=== PATIENT | female | born 1980 | race Caucasian/White ===

== ENCOUNTER 2021-06-02 22:41 | Emergency (ER) | payer OTHER ==
[2021-06-02 23:42] LABS: BASOPHILS # (AUTO) 0.1 10^3/uL (0.0-0.1); BASOPHILS % (AUTO) 0.7 %; EOSINOPHILS # (AUTO) 0.2 10^3/uL (0.0-0.7); EOSINOPHILS % (AUTO) 3.1 %; HGB - HEMOGLOBIN 16.9 g/dL (12.0-16.0); LYMPHOCYTES # (AUTO) 1.9 10^3/uL (1.5-3.5); LYMPHOCYTES % (AUTO) 26.1 %; MEAN CORPUSCULAR HEMOGLOBIN 30.5 pg (27.0-31.0); MEAN CORPUSCULAR HGB CONC 34.5 g/dL (32.0-36.0); MEAN CORPUSCULAR VOLUME 88.4 fL (81.0-99.0); MEAN PLATELET VOLUME 10.1 fL (7.9-10.8); MONOCYTES # (AUTO) 0.4 10^3/uL (0.0-1.0); MONOCYTES % (AUTO) 5.6 %; NEUTROPHILS # (AUTO) 4.7 10^3/uL (1.5-6.6); NEUTROPHILS % (AUTO) 64.4 %; PLT - PLATELET COUNT 222 10^3/uL (130-450); RED BLOOD COUNT 5.54 10^6/uL (4.20-5.40); RED CELL DISTRIBUTION WIDTH 11.8 % (12.0-15.0); WHITE BLOOD COUNT 7.4 x10^3/uL (4.8-10.8)
[2021-06-02] MEDS: cloNIDine 0.1 MG TABLET PO STA (23:45)
[2021-06-02 23:55] LABS: ALBUMIN 4.5 g/dL (3.2-5.5); ALBUMIN/GLOBULIN RATIO 1.6 (1.0-2.2); BILIRUBIN,TOTAL 0.3 mg/dL (0.2-1.0); CALCIUM 8.8 mg/dL (8.5-10.3); CREATININE 0.7 mg/dL (0.4-1.0); POTASSIUM 3.1 mmol/L (3.5-5.0); TOTAL PROTEIN 7.4 g/dL (6.7-8.2)
[2021-06-03] MEDS: cloNIDine 0.1 MG TABLET PO STA (00:08)
[2021-06-03 00:13] VITALS: BP 175/108
[2021-06-03] MEDS ORDERED: POTASSIUM CHLORIDE 20 MEQ TABLET PO STA (00:57)
--- NOTE | 2021-06-03 01:20 | ED Physician Documentation ---
History of Present Illness - Stated complaint Stated Complaint: HI BP - Chief complaint Chief Complaint: General - Additonal information Additional information: Patient is a 41-year-old female with a recent diagnosis of hypertension And just started on amlodipine yesterday presenting for evaluation of uncontrolled blood pressures.Patient had an appointment with her primary care doctor yesterday and was noted to have elevated blood pressure readings With elevated systolic and diastolic readings. Patient was started on Norvasc. She took her first dose tonight at 5 PM. She has been monitoring her blood pressure today and it is remained elevated. While discussing this with other friends and family members they expressed concern about her elevated blood pressure and patient started also to feel worried.She says at times she is felt pressure in her eyes but otherwise currently denies a headache, chest pain, difficulty breathing, focal weakness. Review of Systems Constitutional: denies: Fever Eyes: denies: Loss of vision, Decreased vision Nose: denies: Congestion Cardiac: denies: Chest pain / pressure, Palpitations Respiratory: denies: Dyspnea, Cough GI: denies: Abdominal Pain, Nausea, Vomiting : denies: Dysuria Skin: denies: Rash Musculoskeletal: denies: Back pain Neurologic: denies: Headache PD PAST MEDICAL HISTORY - Past Medical History Past Medical History: Yes Cardiovascular: Hypertension Respiratory: None Neuro: None Endocrine/Autoimmune: None GI: None CLAIM APPROVER: None : None HEENT: None Psych: None Musculoskeletal: None Derm: None - Past Surgical History Past Surgical History: No - Present Medications Home Medications: Ambulatory Orders Medication Instructions Recorded Confirmed amLODIPine [Norvasc] 2.5 mg pe PO DAILY 06/02/21 06/02/21 - Allergies Allergies/Adverse Reactions: Allergies Allergy/AdvReac Type Severity Reaction Status Date / Time No Known Drug Allergies Allergy Verified 06/02/21 22:52 - Social History Does the pt smoke?: Yes Smoking Status: Current every day smoker Does the pt drink ETOH?: Yes Does the pt have substance abuse?: No - Immunizations Immunizations are current?: Yes - POLST Patient has POLST: No PD ED PE NORMAL - General General: Alert and oriented X 3, No acute distress, Well developed/nourished - HEENT HEENT: Atraumatic, PERRL, EOMI, Moist mucous membranes, Pharynx benign - Neck Neck: Supple, no meningeal sign - Cardiac Cardiac: RRR, No murmur, Strong equal pulses - Respiratory Respiratory: No respiratory distress, Clear bilaterally - Abdomen Abdomen: Normal bowel sounds, Soft, Non tender, Non distended - Back Back: No CVA TTP - Derm Derm: Warm and dry - Extremities Extremities: No deformity, No edema - Neuro Neuro: Alert and oriented X 3, No motor deficit, Normal speech - Psych Psych: Normal mood, Normal affect Results - Vitals Vitals: Vital Signs - 24 hr 06/02/21 06/02/21 06/02/21 22:45 22:58 23:20 Temperature 35.8 C L 36.4 C L Heart Rate 112 H 52 L 109 H Respiratory 16 16 16 Rate Blood Pressure 216/129 H 113/69 O2 Saturation 97 96 96 06/02/21 06/03/21 06/03/21 23:22 00:05 00:28 Temperature Heart Rate 102 H 75 101 H Respiratory 16 16 16 Rate Blood Pressure 209/126 H 175/108 H O2 Saturation 97 96 98 Oxygen O2 Source Room air - EKG (time done) 2328 Rate: Rate (enter#) (89) Rhythm: NSR Ischemia: ST depression (V5, V6) - Labs Labs: Laboratory Tests 06/02/21 06/02/21 06/02/21 23:32 23:32 23:32 WBC 7.4 RBC 5.54 H Hgb 16.9 H Hct 49.0 H MCV 88.4 MCH 30.5 MCHC 34.5 RDW 11.8 L Plt Count 222 MPV 10.1 Neut # (Auto) 4.7 Lymph # (Auto) 1.9 [place] # (Auto) 0.4 Eos # (Auto) 0.2 Baso # (Auto) 0.1 Absolute Nucleated RBC 0.00 Nucleated RBC % 0.0 Sodium 145 Potassium 3.1 L Chloride 107 Carbon Dioxide 24 Anion Gap 14.0 H BUN 15 Creatinine 0.7 Estimated GFR (MDRD) 91 Glucose 108 H Calcium 8.8 Total Bilirubin 0.3 AST 29 ALT 43 Alkaline Phosphatase 44 Troponin I High Sens 23.4 H* Total Protein 7.4 Albumin 4.5 Globulin 2.9 Albumin/Globulin Ratio 1.6 06/03/21 00:43 WBC RBC Hgb Hct MCV MCH MCHC RDW Plt Count MPV Neut # (Auto) Lymph # (Auto) [place] # (Auto) Eos # (Auto) Baso # (Auto) Absolute Nucleated RBC Nucleated RBC % Sodium Potassium Chloride Carbon Dioxide Anion Gap BUN Creatinine Estimated GFR (MDRD) Glucose Calcium Total Bilirubin AST ALT Alkaline Phosphatase Troponin I High Sens 26.4 H* Total Protein Albumin Globulin Albumin/Globulin Ratio PD MEDICAL DECISION MAKING - ED course Complexity details: reviewed results, d/w patient, d/w family ED course: Patient is a 41-year-old female with a history of hypertension and just started on medication presenting for evaluation of elevated blood pressure readings. Patient is essentially asymptomatic here but has significantly elevated blood pr essure readings during initial exam. Therefore I did obtain an EKG and lab work to evaluate for signs of endorgan damage.Initial high-sensitivity troponin was in the indeterminate range but on repeat did not change. Patient denies any current symptoms throughout her stay and her blood pressure did improve to 178/101. Without any intervention. I encourage patient to be compliant with her new medication and to keep a log of her blood pressure readings. She does not have signs of hypertensive emergency or urgency at this time. Patient is to follow-up with her primary care doctor. She is aware of strict return precautions for any new or worsening symptoms. Departure - Departure Disposition: 01 Home, Self Care Clinical Impression: Uncontrolled hypertension, Hypokalemia Instructions: ED Hypertension Conf Out Of Control Comments: Seen in the emergency department for high blood pressure. Your blood pressure has improved while in the emergency department without needing additional medications. Your labs were also checked and your potassium was slightly low but you were given a potassium pill to help with this. Please continue taking your blood pressure medication as prescribed and keep a log of your blood pressure readings at home. If it anytime you start having symptoms such as a headache, changes to your vision, chest pain, difficulty breathing, weakness please return to the emergency department. Otherwise you should follow-up with your primary care doctor in the next 1 to 2 weeks regarding another blood pressure check. Discharge Date/Time: 06/03/21 01:35
== END 2021-06-03 01:35 | disposition home or self-care (01) ==
LOC: ED 22:41
DX: I10 Essential (primary) hypertension (principal); E87.6 Hypokalemia; F17.200 Nicotine dependence, unspecified, uncomplicated
CPT/HCPCS: 36415; 80053; 84484; 85025; 93005; 99284; A9270

== ENCOUNTER 2022-01-01 15:41 | Emergency (ER) | payer OTHER ==
[2022-01-01 20:54] LABS: BASOPHILS % (AUTO) 0.5 %; EOSINOPHILS # (AUTO) 0.1 10^3/uL (0.0-0.7); EOSINOPHILS % (AUTO) 1.4 %; HCT - HEMATOCRIT 41.4 % (37.0-47.0); HGB - HEMOGLOBIN 14.4 g/dL (12.0-16.0); LYMPHOCYTES # (AUTO) 1.4 10^3/uL (1.5-3.5); LYMPHOCYTES % (AUTO) 16.6 %; MEAN CORPUSCULAR HEMOGLOBIN 31.1 pg (27.0-31.0); MEAN CORPUSCULAR HGB CONC 34.8 g/dL (32.0-36.0); MEAN CORPUSCULAR VOLUME 89.4 fL (81.0-99.0); MEAN PLATELET VOLUME 9.6 fL (7.9-10.8); MONOCYTES # (AUTO) 0.9 10^3/uL (0.0-1.0); MONOCYTES % (AUTO) 11.1 %; PLT - PLATELET COUNT 232 10^3/uL (130-450); RED BLOOD COUNT 4.63 10^6/uL (4.20-5.40); RED CELL DISTRIBUTION WIDTH 12.5 % (12.0-15.0); WHITE BLOOD COUNT 8.5 x10^3/uL (4.8-10.8)
[2022-01-01 20:59] LABS: INR 1.1 (0.8-1.2)
[2022-01-01 21:09] LABS: ALBUMIN 4.2 g/dL (3.2-5.5); ALBUMIN/GLOBULIN RATIO 1.7 (1.0-2.2); BILIRUBIN,TOTAL 1.2 mg/dL (0.2-1.0); CALCIUM 8.8 mg/dL (8.5-10.3); CREATININE 0.6 mg/dL (0.4-1.0); POTASSIUM 2.7 mmol/L (3.5-5.0); TOTAL PROTEIN 6.7 g/dL (6.7-8.2)
--- NOTE | 2022-01-01 21:09 | Ultrasound Report ---
PROCEDURE: Duplex Ext Veins Left INDICATIONS: LLE edema TECHNIQUE: Real-time imaging, as well as color and pulse Doppler interrogation, were performed of the lower extr emity deep veins from the inguinal ligament to the popliteal fossa. COMPARISON: None. FINDINGS: There are extensive filling defects throughout the left lower extremity extending from the proximal t o pressure femoral vein to the distal calf consistent with occlusive deep venous thrombosis. IMPRESSION: 1. Extensive deep venous thrombosis throughout the left lower extremity. Findings reported Dr. Mckeon at the conclusion of the study by the medical technologist prn. Reviewed by: Jerad Sol MD on 01/01/2022 9:07 PM [facility] Approved by: Jerad Sol MD on 01/01/2022 9:07 PM PST Station ID: [id number]
--- NOTE | 2022-01-01 21:41 | ED Physician Documentation ---
History of Present Illness - Stated complaint Stated Complaint: EDEMA - Chief complaint Chief Complaint: Ext Problem - Additonal information Additional information: 41-year-old female presents to the emergency department for evaluation of 1 week left lower extremity leg pain and swelling. She reports that about 1 week ago she woke up and thought she had pulled a muscle in her leg but over time the pain is progressed up to her medial thigh. She typically wakes up with swelling in the leg though with elevation it does improve. She is denying chest pain or shortness of air. She takes a Depo shot every 3 months for control. Occ asionally smokes. No history of recent surgery, travel or immobilization. No personal history of DVT or cancer. No family history of factor V Leyden 5 or deep vein thrombosis that she is aware of. Review of Systems Constitutional: reports: Reviewed and negative Throat: reports: Reviewed and negative Cardiac: reports: Reviewed and negative Respiratory: reports: Reviewed and negative GI: reports: Reviewed and negative : reports: Reviewed and negative Musculoskeletal: reports: Extremity pain, Extremity swelling PD PAST MEDICAL HISTORY - Past Medical History Past Medical History: Yes Cardiovascular: Hypertension Respiratory: None Neuro: None Endocrine/Autoimmune: None GI: None SURFACING TECHNICIAN: None : None HEENT: None Psych: None Musculoskeletal: None Derm: None - Past Surgical History Past Surgical History: No - Present Medications Home Medications: Ambulatory Orders Medication Instructions Recorded Confirmed amLODIPine [Norvasc] 2.5 mg pe PO DAILY 06/02/21 06/02/21 Apixaban [Eliquis] 5 mg PO BID #30 tablet 01/01/22 - Allergies Allergies/Adverse Reactions: Allergies Allergy/AdvReac Type Severity Reaction Status Date / Time No Known Drug Allergies Allergy Verified 06/02/21 22:52 - Social History Does the pt smoke?: Yes Smoking Status: Current every day smoker Does the pt drink ETOH?: Yes Does the pt have substance abuse?: No - Immunizations Immunizations are current?: Yes - POLST Patient has POLST: No PD ED PE NORMAL - General General: Alert and oriented X 3, No acute distress - HEENT HEENT: PERRL - Neck Neck: Supple, no meningeal sign, No adenopathy - Cardiac Cardiac: RRR, No murmur - Respiratory Respiratory: No respiratory distress - Abdomen Abdomen: Normal bowel sounds, Soft, Non tender - Derm Derm: Normal color, Warm and dry - Extremities Extremities: No deformity, Other (Tenderness with palpation of the left medial calf and medial thigh. Mild swelling but no erythema.) - Neuro Neuro: Alert and oriented X 3, international relations professor 2-12 intact Eye Opening: Spontaneous Motor: Obeys Commands Verbal: Oriented GCS Score: 15 Results - Vitals Vitals: Vital Signs - 24 hr 01/01/22 01/01/22 15:56 20:00 Temperature 36.9 C Heart Rate 95 88 Respiratory 16 16 Rate Blood Pressure 168/81 H 150/79 H O2 Saturation 97 98 Oxygen O2 Source Room air - Labs Labs: Laboratory Tests 01/01/22 01/01/22 01/01/22 20:30 20:30 20:30 WBC 8.5 RBC 4.63 Hgb 14.4 Hct 41.4 MCV 89.4 MCH 31.1 H MCHC 34.8 RDW 12.5 Plt Count 232 MPV 9.6 Neut # (Auto) 6.0 Lymph # (Auto) 1.4 L [place] # (Auto) 0.9 Eos # (Auto) 0.1 Baso # (Auto) 0.0 Absolute Nucleated RBC 0.00 Nucleated RBC % 0.0 PT 12.0 INR 1.1 Sodium 138 Potassium 2.7 L Chloride 99 L Carbon Dioxide 27 Anion Gap 12.0 BUN 10 Creatinine 0.6 Estimated GFR (MDRD) 109 Glucose 102 H Calcium 8.8 Total Bilirubin 1.2 H AST 30 ALT 31 Alkaline Phosphatase 50 Total Protein 6.7 Albumin 4.2 Globulin 2.5 Albumin/Globulin Ratio 1.7 Lipase 56 H SARS-CoV-2 (PCR) 01/01/22 21:45 WBC RBC Hgb Hct MCV MCH MCHC RDW Plt Count MPV Neut # (Auto) Lymph # (Auto) [place] # (Auto) Eos # (Auto) Baso # (Auto) Absolute Nucleated RBC Nucleated RBC % PT INR Sodium Potassium Chloride Carbon Dioxide Anion Gap BUN Creatinine Estimated GFR (MDRD) Glucose Calcium Total Bilirubin AST ALT Alkaline Phosphatase Total Protein Albumin Globulin Albumin/Globulin Ratio Lipase SARS-CoV-2 (PCR) NOT DETECTED - Rads (name of study) US DVT Radiology: Final report received (Extensive deep vein thrombosis extending from the proximal femoral vein to the distal calf.) PD MEDICAL DECISION MAKING - ED course Complexity details: reviewed results, re-evaluated patient, considered diffe rential, d/w patient ED course: 41-year-old female presents emergency department for about 1 week of left lower extremity swelling and pain. She initially thought she pulled a muscle but over the last week she has had pain that extends from her lower calf up to her medial thigh. Her CBC and electrolytes showed no acute worrisome findings. Unfortunately an ultrasound shows extensive deep vein thrombosis from the left medial femoral vein all the way down through the popliteal veins to the foot. There is some mild associated swelling as well as some moderate pain. Given how extensive this thrombus is I am electing to consult with vascular to determine if she should be seen for thrombectomy or be evaluated for thrombolysis. Admittedly this would be an unprovoked DVT and patient will require follow-up with hematology oncology as an outpatient for further evaluation of this thrombus and longer-term anticoagulation management if deemed stable for discharge home 2250: I have spoken with Dr. Prabhakar the vascular surgeon on-call at [facility]. She was able to review the ultrasound imaging orders she makes the recommendation for Eliquis. She does not feel that the patient would benefit from emergent transfer for thrombectomy or thrombolysis. Patient should continue to follow-up with her PCP as an outpatient and obtain referral to hematology oncology. These findings were discussed with the patient as well as emergent return precautions for concerns of chest pain and shortness of air/PE symptoms Departure - Departure Disposition: 01 Home, Self Care Clinical Impression: Deep vein thrombosis Qualifiers: DVT location: lower extremity Affected thrombotic vein of extremity: femoral Chronicity: acute Laterality: left Qualified Code(s): I82.412 - Acute embolism and thrombosis of left femoral vein Condition: Stable Record reviewed to determine appropriate education?: Yes Instructions: ED DVT, Apixaban oral tablets Follow-Up: Mikki Harrison MD [Primary Care Provider] - Prescriptions: Apixaban [Eliquis] 5 mg PO BID #30 tablet Comments: You are seen today in the emergency department for evaluation of left lower leg pain and swelling. Your labs did not show any worrisome findings. Unfortunately you do have a very large DVT that extends from your femoral vein all the way down to your popliteal vein. Your case was discussed with the vascular surgeon at and they do not feel that you would benefit from an emergent referral for a thrombectomy or thrombolysis. In order to manage the DVT we are starting you on Eliquis. This is a medication that prevents new clot from forming. The clot burden your leg will simply get absorbed over time. Fill the prescription for the Eliquis and begin taking 10 mg twice daily for 1 week. After that begin taking 5 mg twice daily. Your primary care doctor will need to make a referral for you to a landscaper helper and oncologist for longer-term evaluation of this DVT and to help determine why you have gotten such a large 1. At any point you develop sudden severe chest pain, have severe shortness of air or any fainting episodes you must return immediately to the ER for a second evaluation. Today point you have any falls or trauma, hit your head, have sudden severe headache or uncontrolled bleeding you then must also return immediately to the ER.
[2022-01-01] MEDS ORDERED: APIXABAN 5 MG TABLET PO STA (22:50)
[2022-01-01 22:53] VITALS: BP 158/94
== END 2022-01-01 23:07 | disposition home or self-care (01) ==
LOC: ED 15:41
DX: I82.412 Acute embolism and thrombosis of left femoral vein (principal); F17.200 Nicotine dependence, unspecified, uncomplicated
CPT/HCPCS: 36415; 80053; 83690; 85025; 85610; 87635; 93971; 99284; A9270

== ENCOUNTER 2022-03-29 11:31 | Outpatient (CLI) | payer OTHER ==
--- NOTE | 2022-03-29 12:42 | Ultrasound Report ---
PROCEDURE: Duplex Ext Veins Left INDICATIONS: EDEMA TECHNIQUE: Real-time imaging, as well as color and pulse Doppler interrogation, were performed of the lower extr emity deep veins from the inguinal ligament to the popliteal fossa. COMPARISON: Venous ultrasound 01/01/2022 FINDINGS: Nonocclusive thrombus within the right superficial femoral vein extending proximal to the p opliteal vein. Calf veins are not well seen. It is noted prior thrombus extended throughout the lower extremity into the calf veins. IMPRESSION: Persistent thrombus although improving compared to prior exam. Reviewed by: Анна Kingsley MD on 03/29/2022 12:40 PM PST Approved by: Анна Kingsley MD on 03/29/2022 12:40 PM PST Station ID: [id number]
== END 2022-03-29 11:32 | disposition home or self-care (01) ==
LOC: DI 11:31
PROVIDERS: ATTEND Internal Medicine
DX: R60.0 Localized edema (principal); I82.812 Embolism and thrombosis of superficial veins of left lower extremity

== ENCOUNTER 2022-05-04 08:28 | Outpatient (CLI) | payer OTHER ==
[2022-05-05 17:08] LABS: ANTI-DNA (DS) AB QN <1 IU/mL (0-9); CENTROMERE B ANTIBODIES <0.2 AI (0.0-0.9); CHROMATIN ANTIBODIES <0.2 AI (0.0-0.9); JO-1 AB <0.2 AI (0.0-0.9); RIBOSOMAL P ANTIBODIES <0.2 AI (0.0-0.9); RNP ANTIBODIES <0.2 AI (0.0-0.9); SCLERODERMA-70 ANTIBODIES <0.2 AI (0.0-0.9); SJOGREN'S ANTI-SS-A <0.2 AI (0.0-0.9); SJOGREN'S ANTI-SS-B <0.2 AI (0.0-0.9); SMITH ANTIBODIES <0.2 AI (0.0-0.9); SMITH/RNP ANTIBODIES <0.2 AI (0.0-0.9)
== END 2022-05-04 08:29 | disposition home or self-care (01) ==
LOC: LAB 08:28
PROVIDERS: ATTEND Internal Medicine
DX: I82.409 Acute embolism and thrombosis of unspecified deep veins of unspecified lower extremity (principal)
CPT/HCPCS: 36415; 81240; 81241; 81599; 82172; 83090; 83516; 85300; 85303; 85306; 85307; 85651; 86140; 86225; 86235

== ENCOUNTER 2022-07-30 07:00 | Outpatient (CLI) | payer OTHER ==
--- NOTE | 2022-07-30 18:55 | XRAY Report ---
PROCEDURE: Knee 4 View RT INDICATIONS: ACUTE RIGHT KNEE PAIN TECHNIQUE: 3 views of the right knee(s) were acquired. COMPARISON: None. FINDINGS: Bones: No fractures or dislocations. No suspicious bony lesions. Soft tissues: No knee joint effusion. No suspicious soft tissue calcifications or masses. IMPRESSION: No acute bony abnormality. Reviewed by: Chintan Miller MD on 07/30/2022 5:54 PM [facility] Approved by: Chintan Miller MD on 07/30/2022 5:54 PM [facility] Station ID: [id number]
== END 2022-07-30 23:59 | disposition home or self-care (01) ==
LOC: DI.S 07:00
PROVIDERS: ATTEND Physician Assistant
DX: M25.561 Pain in right knee (principal); M25.461 Effusion, right knee

== ENCOUNTER 2022-07-30 16:18 | Outpatient (CLI) | payer OTHER | END 2022-07-30 23:59 | disposition home or self-care (01) | LOC: DI.S 16:18 | PROVIDERS: ATTEND Physician Assistant | DX: Z53.9 Procedure and treatment not carried out, unspecified reason (principal) ==

== ENCOUNTER 2022-08-23 15:56 | Outpatient (CLI) | payer OTHER ==
--- NOTE | 2022-08-23 17:35 | Ultrasound Report ---
PROCEDURE: Duplex Ext Veins Right INDICATIONS: EDEMA TECHNIQUE: Real-time imaging, as well as color and pulse Doppler interrogation, were performed of the lower extr emity deep veins from the inguinal ligament to the popliteal fossa. COMPARISON: None. FINDINGS AND IMPRESSION: Positive study for DVT in the right leg. Essentially occlusive thrombus is seen involving the profund a vein, distal CFV, SFV, popliteal, and calf veins. Reviewed by: Raghavendra Cardoza MD on 08/23/2022 5:34 PM PDT Approved by: Raghavendra Cardoza MD on 08/23/2022 5:34 PM PDT Station ID: [id number]
== END 2022-08-23 15:57 | disposition home or self-care (01) ==
LOC: DI 15:56
PROVIDERS: ATTEND Internal Medicine
DX: I82.411 Acute embolism and thrombosis of right femoral vein (principal); I82.431 Acute embolism and thrombosis of right popliteal vein; I82.491 Acute embolism and thrombosis of other specified deep vein of right lower extremity

== ENCOUNTER 2023-03-06 08:00 | Outpatient (CLI) | payer OTHER | END 2023-03-06 23:59 | disposition home or self-care (01) | LOC: LAB.S 08:00 | PROVIDERS: ATTEND Internal Medicine | DX: R31.0 Gross hematuria (principal) | CPT/HCPCS: 87086 ==

== ENCOUNTER 2023-07-31 15:12 | Outpatient (CLI) | payer OTHER ==
--- NOTE | 2023-08-01 10:21 | Mammography Report ---
BILATERAL FIRST EVER DIGITAL SCREENING MAMMOGRAM 3D/2D: 07/31/2023 CLINICAL: Baseline exam. Routine screening. No prior exams were available for comparison. There are scattered areas of fibroglandular density in both breasts (category b / 25%-50% glandular t issue). There is a focal asymmetry in the right breast central to the nipple anterior depth. There is a focal asymmetry in the left breast at 2 o'clock middle depth. No other significant masses or calcifications are seen in either breast. IMPRESSION: INCOMPLETE: NEEDS ADDITIONAL IMAGING EVALUATION The focal asymmetry in the right breast central to the nipple anterior depth is indeterminate. Addit ional views with possible ultrasound are recommended. The focal asymmetry in the left breast at 2 o'clock middle depth is indeterminate. Additional views with possible ultrasound are recommended. Based on the Tyrer Cuzick model (a risk assessment model) the patient's lifetime risk is 7.1% and her 10 year risk is 1.3%. According to the ACR, ACS, and NCCN guidelines, an annual breast MRI exam ana maria g with mammogram is recommended if the patient's lifetime risk is 20% or greater. This exam was interpreted at Station ID: [id number]. NOTE: For mammograms, a report in lay terms will be sent to the patient. Approximately 15% of breast malignancies will not be visualized mammographically. In the management of a palpable breast mass, a negative mammogram must not discourage biopsy of a clinically suspicious lesion. Electronically Signed By: Raghavendra de paz/wilsonrad:08/01/2023 08:29:10 ACR BI-RADS Category 0: Incomplete 3340F PARENCHYMAL PATTERN: (A) - The breast(s) demonstrate(s) scattered fibroglandular densities. BI-RADS CATEGORY: (0) - 0 Mammo and [place] [id number] Immediate follow-up LATERALITY: (B)
== END 2023-07-31 15:13 | disposition home or self-care (01) ==
LOC: DI 15:12
PROVIDERS: ATTEND Internal Medicine
DX: Z12.31 Encounter for screening mammogram for malignant neoplasm of breast (principal); R92.8 Other abnormal and inconclusive findings on diagnostic imaging of breast; R92.323 Mammographic fibroglandular density, bilateral breasts

== ENCOUNTER 2023-09-21 08:00 | Outpatient (CLI) | payer OTHER | END 2023-09-21 23:58 | disposition home or self-care (01) | LOC: LAB 08:00 | PROVIDERS: ATTEND Physician Assistant | DX: N39.0 Urinary tract infection, site not specified (principal) | CPT/HCPCS: 87086 ==

== ENCOUNTER 2023-09-24 16:47 | Emergency (ER) | payer OTHER ==
[2023-09-24 17:14] VITALS: O2SAT 99
[2023-09-24 17:27] LABS: BILIRUBIN,URINE NEGATIVE (NEGATIVE); GLUCOSE, URINE (UA) NEGATIVE (NEGATIVE); KETONES,URINE (UA) 40 mg/dL (NEGATIVE); LEUKOCYTE ESTERASE, URINE TRACE (NEGATIVE); NITRITE,URINE POSITIVE (NEGATIVE); OCCULT BLOOD,URINE LARGE (NEGATIVE); PH,URINE 6.5 PH (5.0-7.5); PROTEIN,URINE 100 mg/dL (NEGATIVE); UROBILINOGEN,URINE 1 (NORMAL) E.U./dL (NORMAL)
[2023-09-24 17:30] LABS: CLARITY,URINE CLOUDY (CLEAR)
[2023-09-24 17:31] LABS: HCG UR QUAL NEGATIVE
[2023-09-24 17:36] LABS: RBC,URINE TNTC /HPF (0-5)
[2023-09-24 17:37] LABS: BACTERIA,URINE None Seen /HPF (None Seen); SQUAMOUS EPITHELIAL CELL,UR NONE SEEN (<= Few)
[2023-09-24 17:42] LABS: BASOPHILS % (AUTO) 0.5 %; EOSINOPHILS # (AUTO) 0.1 10^3/uL (0.0-0.7); EOSINOPHILS % (AUTO) 1.9 %; HCT - HEMATOCRIT 38.9 % (37.0-47.0); HGB - HEMOGLOBIN 13.5 g/dL (12.0-16.0); LYMPHOCYTES # (AUTO) 1.6 10^3/uL (1.5-3.5); LYMPHOCYTES % (AUTO) 21.8 %; MEAN CORPUSCULAR HEMOGLOBIN 31.4 pg (27.0-31.0); MEAN CORPUSCULAR HGB CONC 34.7 g/dL (32.0-36.0); MEAN CORPUSCULAR VOLUME 90.5 fL (81.0-99.0); MEAN PLATELET VOLUME 9.5 fL (7.9-10.8); MONOCYTES # (AUTO) 0.6 10^3/uL (0.0-1.0); MONOCYTES % (AUTO) 8.2 %; NEUTROPHILS # (AUTO) 4.9 10^3/uL (1.5-6.6); NEUTROPHILS % (AUTO) 67.5 %; PLT - PLATELET COUNT 257 10^3/uL (130-450); RED CELL DISTRIBUTION WIDTH 12.1 % (12.0-15.0); WHITE BLOOD COUNT 7.3 x10^3/uL (4.8-10.8)
[2023-09-24 17:52] LABS: ALBUMIN 4.4 g/dL (3.2-5.5); BILIRUBIN,TOTAL 0.6 mg/dL (0.2-1.0); CALCIUM 9.6 mg/dL (8.5-10.3); CREATININE 0.7 mg/dL (0.6-1.3); POTASSIUM 3.1 mmol/L (3.5-4.5); TOTAL PROTEIN 6.6 g/dL (6.4-8.9)
--- NOTE | 2023-09-24 18:04 | ED Physician Documentation ---
History of Present Illness - Stated complaint Stated Complaint: - Chief complaint Chief Complaint: Abd Pain - History obtained from History obtained from: Patient - History of Present Illness Pain level max: 0 Pain level now: 0 - Additonal information Additional information: Patient is a 43-year-old female presents to the emergency department complaining of hematuria. She states this been intermittent for the past several months. 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 She is a smoker, 2 cigarettes/day. No lightheadedness or dizziness. No abdominal pain or pelvic pain. She states that she was passing clots in her urine today. She has a referral pending for urology. Contacted her doctor who recommended that she come to the emergency department today for evaluation. She states that she was seen at a walk-in clinic last week, prescribed antibiotics but then told to stop the antibiotics that she did not have a UTI. Review of Systems Constitutional: denies: Fever, Chills GI: denies: Vomiting, Constipation, Diarrhea Skin: denies: Rash Musculoskeletal: denies: Neck pain, Back pain Neurologic: denies: Headache PD PAST MEDICAL HISTORY - Past Medical History Past Medical History: Yes Cardiovascular: Hypertension Respiratory: None Neuro: Migraines Endocrine/Autoimmune: None GI: None MANAGER REGISTRATION: None : None HEENT: None Psych: None Musculoskeletal: None Derm: None - Past Surgical History Past Surgical History: No - Present Medications Home Medications: Ambulatory Orders Medication Instructions Recorded Confirmed Dabigatran Etexilate Mesylate 150 mg PO BID #180 cap 01/02/23 07/17/23 [Dabigatran Etexilate] Doxazosin [Cardura] 2 mg PO DAILY 01/02/23 07/17/23 Medroxyprogesterone Acetate 150 mg IM UD 01/02/23 07/17/23 [Depo-Provera] Verapamil ER [Calan SA] 180 mg PO DAILY 01/02/23 07/17/23 hydroCHLOROthiazide [Hydrodiuril] 25 mg PO DAILY 01/02/23 07/17/23 Apixaban [Eliquis] 5 mg PO Q12H #60 tab 07/17/23 LORazepam [Ativan] 0.5 mg PO Q8H PRN #10 tablet 09/24/23 - Allergies Allergies/Adverse Reactions: Allergies Allergy/AdvReac Type Severity Reaction Status Date / Time No Known Drug Allergies Allergy Verified 09/24/23 16:55 - Social History Does the pt smoke?: Yes Smoking Status: Current some day smoker Does the pt drink ETOH?: Yes ETOH Use: Liquor Does the pt have substance abuse?: No - Immunizations Immunizations are current?: Yes - POLST Patient has POLST: No PD ED PE NORMAL - Vitals Vital signs reviewed: Yes - General General: Alert and oriented X 3, No acute distress - HEENT HEENT: PERRL, Moist mucous membranes - Neck Neck: Supple, no meningeal sign - Cardiac Cardiac: RRR, Strong equal pulses - Respiratory Respiratory: No respiratory distress, Clear bilaterally - Abdomen Abdomen: Soft, Non tender, Non distended - Back Back: No CVA TTP, No spinal TTP - Derm Derm: Warm and dry - Neuro Neuro: Alert and oriented X 3 - Psych Psych: Normal mood, Normal affect Results - Vitals Vitals: Vital Signs - 24 hr 09/24/23 09/24/23 09/24/23 16:55 17:23 19:26 Temperature 37 C Heart Rate 89 80 74 Respiratory 16 18 18 Rate Blood Pressure 156/78 H 143/86 H 126/62 O2 Saturation 99 99 99 Oxygen O2 Source Room air - Labs Labs: Laboratory Tests 09/24/23 09/24/23 09/24/23 17:14 17:30 17:30 WBC 7.3 RBC 4.30 Hgb 13.5 Hct 38.9 MCV 90.5 MCH 31.4 H MCHC 34.7 RDW 12.1 Plt Count 257 MPV 9.5 Neut # (Auto) 4.9 Lymph # (Auto) 1.6 [place]ner # (Auto) 0.6 Eos # (Auto) 0.1 Baso # (Auto) 0.0 Absolute Nucleated RBC 0.00 Nucleated RBC % 0.0 Sodium 134 L Potassium 3.1 L Chloride 96 L Carbon Dioxide 25 Anion Gap 13.0 BUN 17 Creatinine 0.7 Estimated GFR (MDRD) 90 Glucose 102 Calcium 9.6 Total Bilirubin 0.6 AST 45 H ALT 62 H Alkaline Phosphatase 36 L Total Protein 6.6 Albumin 4.4 Globulin 2.2 Albumin/Globulin Ratio 2.0 Lipase 78 Urine Color LT RED Urine Clarity CLOUDY Urine pH 6.5 Ur Specific [place] <=1.005 Urine Protein 100 H Urine Glucose (UA) NEGATIVE Urine Ketones 40 H Urine Occult Blood LARGE H Urine Nitrite POSITIVE H Urine Bilirubin NEGATIVE Urine Urobilinogen 1 (NORMAL) Ur Leukocyte Esterase TRACE H Urine RBC TNTC H Urine WBC 6-10 H Ur Squamous Epith Cells NONE SEEN Urine Bacteria None Seen Ur Microscopic Review INDICATED Urine Culture Comments INDICATED Urine HCG, Qual NEGATIVE - Rads (name of study) CT abd pelvis Relevant Findings:: Final report received, See rad report PD Medical Decision Making - ED course Complexity details: reviewed results, re-evaluated patient, considered differential, d/w patient, d/w legal consultant ED course: Patient is a 43-year-old female who is here for hematuria. She is on Pradaxa for multiple recurrent DVTs. Bedside ultrasound of the bladder did not show any acute abnormalities in the bladder. A CT scan was then performed. This shows a large infiltrating left renal mass. Discussed the case with Dr. Cardona, urology, he states that he will contact the patient tomorrow and help walk her through neck steps and where she needs to be seen. I spoke with her primary care provider, Dr. Harrison, as well to inform her of the findings. The findings were relayed to the patient and her . She request medication for anxiety. This was given. We will prescribe Ativan for home. No significant anemia. Recommend that she follow-up with her PCP and with Dr. Cardona tomorrow. A copy of her CAT scan was given to the patient on a disc. Patient counseled regarding signs and symptoms for which I believe and urgent re-evaluation would be necessary. Patient with good understanding of and agreement to plan and is comfortable going home at this time This document was made in part using voice recognition software. While efforts are made to proofread this document, sound alike and grammatical errors may occur. Departure - Departure Disposition: Home, Self Care Clinical Impression: Renal mass Hematuria Qualifiers: Hematuria type: gross Qualified Code(s): R31.0 - Gross hematuria Condition: Good Instructions: ED Hematuria Follow-Up: Mikki Harrison MD [Primary Care Provider] - Bk Cardona MD [Provider Admit Priv/Credential] - Prescriptions: LORazepam [Ativan] 0.5 mg PO Q8H PRN #10 tablet PRN Reason: Anxiety Comments: As we discussed there is a mass on your left kidney. I did discuss your case with your doctor, Dr. Harrison and with Dr. Cardona, the urologist. He will contact you tomorrow to help you with next steps and to discuss more the findings from [facility]. I have sent a prescription for Ativan to [facility] in [place]. Please return if you worsen. Your CT reading is below, please take this with you to your appointments. EXAM: [id number] CT/ABPEW ([id number]) PROCEDURE: Abdomen/Pelvis W INDICATIONS: hematuria CONTRAST: 100ml [id number] TECHNIQUE: After the administration of intravenous contrast, a CT scan of the abdomen and pelvis was performed. Images were recorded and evaluated at appropriate window settings. Reformats: coronal and sagittal. For radiation dose reduction, the following was used: automated exposure control, adjustment of mA and/or kV according to patient size. COMPARISON: None. FINDINGS: Image quality: Diagnostic. Lower chest: Unremarkable. Liver: No solid mass. Gallbladder: No radiopaque stones or wall thickening. Biliary tree: No intrahepatic or extrahepatic dilation, accounting for age. Spleen: No splenomegaly. Pancreas: No pancreatic ductal dilation. Adrenals: No adrenal nodule. Kidneys and ureters: Infiltrative mass of the left kidney measuring 8.9 x 8.8 x 9.8 cm. There is a fat plane between the left psoas muscle and the mass. The mass invades the left renal vein, without extension into the IVC . No contact with the left adrenal gland. Stomach, bowel and peritoneum: No gastric or small bowel dilation. No abnormal wall thickening. No pathologic free fluid. Lymph nodes: Questionable left upper periaortic node versus extension of mass, measuring 2.4 x 4.7 cm (series 2, image 50). Vessels: No infrarenal aortic aneurysm. Patent portal vein. Dilated left gonadal vasculature. PELVIS Reproductive organs: Unremarkable. Bladder: No abnormal wall thickening, accounting for underdistention. Pelvic lymph nodes: No pelvic adenopathy by size criteria. Bones: No aggressive osseous abnormality. Other: Small umbilical hernia containing fat. IMPRESSION: Infiltrative mass of the left kidney measuring 9.8 cm, invading the left renal vein, without extension into the IVC. Probable pathologic left upper periaortic node. No definite evidence of extension beyond the perirenal fascia. Findings could represent renal cell carcinoma versus transitional cell carcinoma, less likely lymphoma. No definite evidence of metastatic disease. Forms: PCP List Discharge Date/Time: 09/24/23 19:28
[2023-09-24] MEDS ORDERED: iohexoL-300 100 ML VIAL ONE (18:08)
[2023-09-24] MEDS: iohexoL-300 100 ML VIAL IVP ONE (18:34)
--- NOTE | 2023-09-24 18:46 | CT Report ---
PROCEDURE: Abdomen/Pelvis W INDICATIONS: hematuria CONTRAST: 100ml [id number] TECHNIQUE: After the administration of intravenous contrast, a CT scan of the abdomen and pelvis was performed. Images were recorded and evaluated at appropriate window settings. Reformats: coronal and sagittal. F or radiation dose reduction, the following was used: automated exposure control, adjustment of mA and /or kV according to patient size. COMPARISON: None. FINDINGS: Image quality: Diagnostic. Lower chest: Unremarkable. Liver: No solid mass. Gallbladder: No radiopaque stones or wall thickening. Biliary tree: No intrahepatic or extrahepatic dilation, accounting for age. Spleen: No splenomegaly. Pancreas: No pancreatic ductal dilation. Adrenals: No adrenal nodule. Kidneys and ureters: Infiltrative mass of the left kidney measuring 8.9 x 8.8 x 9.8 cm. There is a fa t plane between the left psoas muscle and the mass. The mass invades the left renal vein, without ext ension into the IVC . No contact with the left adrenal gland. Stomach, bowel and peritoneum: No gastric or small bowel dilation. No abnormal wall thickening. No pa thologic free fluid. Lymph nodes: Questionable left upper periaortic node versus extension of mass, measuring 2.4 x 4.7 cm (series 2, image 50). Vessels: No infrarenal aortic aneurysm. Patent portal vein. Dilated left gonadal vasculature. PELVIS Reproductive organs: Unremarkable. Bladder: No abnormal wall thickening, accounting for underdistention. Pelvic lymph nodes: No pelvic adenopathy by size criteria. Bones: No aggressive osseous abnormality. Other: Small umbilical hernia containing fat. IMPRESSION: Infiltrative mass of the left kidney measuring 9.8 cm, invading the left renal vein, without extensio n into the IVC. Probable pathologic left upper periaortic node. No definite evidence of extension bey ond the perirenal fascia. Findings could represent renal cell carcinoma versus transitional cell carc inoma, less likely lymphoma. No definite evidence of metastatic disease. Reviewed by: Manjeet Keller MD on 09/24/2023 6:45 PM PDT Approved by: Manjeet Keller MD on 09/24/2023 6:45 PM PDT Station ID: [id number]
[2023-09-24] MEDS: LORazepam 0.5 MG TABLET PO STA (19:22)
[2023-09-24 19:33] VITALS: BP 126/62
== END 2023-09-24 19:28 | disposition home or self-care (01) ==
LOC: ED 16:47
DX: R31.0 Gross hematuria (principal); N28.89 Other specified disorders of kidney and ureter; F41.9 Anxiety disorder, unspecified; F17.200 Nicotine dependence, unspecified, uncomplicated
CPT/HCPCS: 36415; 74177; 80053; 81001; 81025; 83690; 85025; 87086; 99284; A9270; Q9967; 81003

== ENCOUNTER 2023-10-03 12:40 | Outpatient (CLI) | payer OTHER ==
[2023-10-03] MEDS ORDERED: iohexoL-300 100 ML VIAL ONE (12:58)
[2023-10-03] MEDS: iohexoL-300 100 ML VIAL IVP ONE (13:30)
--- NOTE | 2023-10-03 17:33 | CT Report ---
PROCEDURE: Chest W INDICATIONS: RENAL MASS CONTRAST: Omni 300 100ml TECHNIQUE: After the administration of intravenous contrast, a CT scan of the chest was performed. Images were recorded and evaluated at appropriate window settings. Reformats: axial MIP of the chest, coronal and sagittal. For radiation dose reduction, the following was used: automated exposure control, adjustme nt of mA and/or kV according to patient size. COMPARISON: 09/24/2023 FINDINGS: Image quality: Diagnostic. Chest wall and lower neck: No thyroid nodule which requires sonographic follow up. No breast mass. No axillary or supraclavicular adenopathy by size. Lungs and pleura: No consolidations or groundglass opacities. Central and peripheral airways are norm al caliber without bronchial wall thickening or bronchiectasis. Minor scarring at the left posterior lung base. No pleural effusions. No pneumothorax. No suspicious pulmonary nodules which require foll ow up. Mediastinum: Heart size is normal. No pericardial effusion. No large vessel abnormality. No mediastin al adenopathy by size criteria. No anterior or posterior mediastinal mass. Normal esophagus without hiatal hernia. Bones: No aggressive osseous abnormality. Upper Abdomen: Dictated separately IMPRESSION: No evidence of metastatic disease in the chest. Reviewed by: Vaishnavi Casanova MD on 10/03/2023 5:32 PM PDT Approved by: Vaishnavi Casanova MD on 10/03/2023 5:32 PM PDT Station ID: [id number]
== END 2023-10-03 12:41 | disposition home or self-care (01) ==
LOC: DI 12:40
PROVIDERS: ATTEND Urology
DX: N28.89 Other specified disorders of kidney and ureter (principal); R31.9 Hematuria, unspecified
CPT/HCPCS: 71260; 74176; Q9967

== ENCOUNTER 2023-10-03 12:40 | Outpatient (CLI) | payer OTHER ==
--- NOTE | 2023-10-03 17:40 | CT Report ---
PROCEDURE: Abdomen/Pelvis WO INDICATIONS: HEMATURIA TECHNIQUE: A CT scan of the abdomen and pelvis was performed without the use of intravenous contrast. Images we re recorded and evaluated at appropriate window settings. Reformats: coronal and sagittal. For radiat ion dose reduction, the following was used: automated exposure control, adjustment of mA and/or kV ac cording to patient size. COMPARISON: 09/24/2023 FINDINGS: Image quality: Diagnostic. Lower chest: Dictated separately Liver: No new contour deforming mass. Gallbladder: Partially contracted. No visible calcifications. Biliary tree: No visible dilatation or stone. Spleen: No splenomegaly. Pancreas: No calcifications. Normal contour. Adrenals: No adrenal nodule. Kidneys and ureters: Large infiltrative mass involving the mid and upper pole left kidney with abnorm al material in the hilum and extending towards the midline, likely along the renal vein. There is a s mall complex central calcification in the upper pole. There is neovascularity surrounding the left ki dney. No visible hydronephrosis or new collecting system calcification. The right renal contour is no rmal without calcification or hydronephrosis. Both ureters are normal caliber. Stomach, bowel and peritoneum: Stomach and small bowel are normal. Normal appendix. Mild sigmoid colo n diverticulosis. No pathologic free fluid. Lymph nodes: No central or retroperitoneal adenopathy. Vessels: Normal caliber abdominal aorta, IVC, and portal vein. Reproductive organs: Anteverted uterus and ovaries have a normal CT appearance. Bladder: Bladder wall thickness is normal, accounting for underdistention. No calcified bladder stone s. Pelvic lymph nodes: No adenopathy by size criteria. Bones: No aggressive osseous abnormality. Other: No significant ventral or inguinal hernia. IMPRESSION: No significant change in contour of a large left renal mass with extension towards the midline. No evidence of new contour deforming mass to suggest metastatic disease. Reviewed by: Vaishnavi Casanova MD on 10/03/2023 5:38 PM PDT Approved by: Vaishnavi Casanova MD on 10/03/2023 5:38 PM PDT Station ID: [id number]
== END 2023-10-03 12:41 | disposition home or self-care (01) ==
LOC: DI 12:40
PROVIDERS: ATTEND Internal Medicine
DX: R31.9 Hematuria, unspecified (principal)